=== PATIENT | female | born 1945 | race African-American/Black ===

== ENCOUNTER 2018-03-17 22:46 | Inpatient (IN) | payer MEDICARE ==
--- NOTE | 2018-03-17 23:52 | RAD ---
CHEST ONE VIEW 03/17/18 INDICATION: Cough, shortness of breath and wheezing. FINDINGS: There is air and subsegmental atelectasis involving the left mid lung and right lung base. No consoli dation is evident. Heart size is within normal limits. No acute osseous abnormality is evident. IMPRESSION: Areas of subsegmental volume loss can be seen with bronchiolitis. No air space consolidation is evide nt. POS: [facility]
[2018-03-17] MEDS ORDERED: Dexamethasone 10 MG/ML VIAL ONE (23:54)
[2018-03-17] MEDS ORDERED: Albuterol Sulfate 2.5 mg/3 ml Neb ONE (23:57)
[2018-03-18 00:02] LABS: CK (CPK) 165 U/L (29-168); Lipase Less than 4 U/L (8-78)
[2018-03-18 00:07] LABS: CKMB 3.8 ng/mL (0-6.6); Troponin I Less than 0.010 ng/mL (< 0.028)
[2018-03-18 00:09] LABS: Actual Bicarbonate (HCO3a) 22.1 mEq/L (22-28); Analyzer IN Cardio ER; Base Excess (BEa) -1.7 mEq/L (-2.0 to +3.0); CO2 Tension 34.8 mmHg (35.0-45.0); Calcium, Ionized 1.18 mmol/L (1.12-1.30); Carboxyhemoglobin (COHb) 1.6 gm% (0.0-3.0); Hemoglobin (Hb) 14.7 g/dL (12.0-16.0); O2 Tension (PaO2) 70.8 mmHg (> 70.0); pH, Arterial 7.42 (7.35-7.45)
[2018-03-18 00:11] LABS: Puncture Site L RADIAL
[2018-03-18 00:12] LABS: Band 7 % (5-11); Eosinophils 1 % (0-10); Hemoglobin 14.8 g/dL (12.0-16.0); Lymphocytes 14 % (21-51); MDiff Complete? YES; Mean Corpuscular HGB CONC 31.2 g/dL (32.0-36.0); Mean Corpuscular Hemoglobin 32.1 pg (27.0-31.0); Mean Platelet Volume 7.6 fL (7.4-10.4); Monocytes 1 % (0-10); Neutrophil 77 % (42-75); Platelet Count 244 thou/uL (130-400); RBC Distribution Width 13.6 % (11.5-14.5); White Blood Cell (WBC) Count 7.3 thou/uL (4.8-10.8)
[2018-03-18] MEDS ORDERED: Magnesium 2 GM/50 ML 2 GM in Premix Bag 1 BAG IVPB SCH (00:15)
[2018-03-18 00:16] LABS: Globulin 4.1 g/dL (2.4-3.5); Protein, Total 8.3 g/dL (6.0-8.3)
[2018-03-18 00:17] LABS: ALT (SGPT) 18 U/L (8-55); AST (SGOT) 21 U/L (5-34); Albumin 4.1 g/dL (3.4-4.8); Alkaline Phosphatase 77 U/L (40-150); Anion Gap 16 mmol/L (10-20); BUN (Urea Nitrogen) 10 mg/dL (9.8-20.1); Bilirubin, Total 0.5 mg/dL (0.2-1.2); Calc. Creatinine Clearance 0 mL/min (70-130); Calcium 9.8 mg/dL (7.8-10.44); Carbon Dioxide 21 mmol/L (23-31); Chloride 106 mmol/L (98-107); Estimated GFR-MDRD 70; Glucose 180 mg/dL (80-115); Potassium 3.7 mmol/L (3.5-5.1); Sodium 139 mmol/L (136-145)
[2018-03-18 00:53] LABS: Bilirubin Negative (Negative); Blood, Urine Negative (Negative); Clarity CLEAR (Clear); Glucose, Urine (Dipstick) Negative (Negative); Leukocyte Small (Negative); Nitrite Negative (Negative); Protein, Urine (Dipstick) Negative (Neg-Trace); Specific Gravity, Urine 1.005 (1.002-1.036)
[2018-03-18 00:56] LABS: Bacteria/HPF None Seen HPF (None Seen); Hyaline Casts/LPF 0-3 HYALINE CAST LPF (0-3 Hyaline); RBC/HPF 0-3 HPF (0-3); Squamous Epithelial None Seen HPF (0-3); WBC/HPF 0-3 HPF (0-3)
[2018-03-18] MEDS ORDERED: Enoxaparin Sodium 100 MG/ML SYRINGE ONE (01:22)
[2018-03-18] MEDS ORDERED: Lorazepam 2 MG/ML VIAL ONE (02:34)
[2018-03-18 03:15] LABS: Troponin I Less than 0.010 ng/mL (< 0.028)
[2018-03-18 03:29] LABS: Lactic Acid 3.6 mmol/L (0.5-2.2)
[2018-03-18] MEDS ORDERED: Ondansetron PF 4 MG/2 ML Vial IVP PRN ×2 (03:51→03:58)
[2018-03-18] MEDS ORDERED: Ondansetron ODT 4 MG TAB SL PRN (03:51)
[2018-03-18] MEDS ORDERED: Senokot S 8.6-50 MG TAB PO PRN (03:58)
[2018-03-18] MEDS ORDERED: Acetaminophen 650 MG Suppository PR PRN (03:58)
[2018-03-18 04:41] VITALS: BMI 35.9
--- NOTE | 2018-03-18 05:08 | HP ---
PRIMARY CARE PROVIDER: Modesto Thakkar DO CHIEF COMPLAINT: Shortness of breath. HISTORY OF PRESENT ILLNESS: Ms. Michaels is a pleasant 72-year-old lady who was seen at [facility] on 03/18/2018. She reports that over the last 4 weeks, she has been having wheezing and shortness of breath with exe rtion. She saw her primary care provider 2 weeks ago. When she was seen in the office, she was not wheezing. She saw him again yesterday. At that time, she was wheezing. She was advised to go to [facility] emergency room. She did not wish to go to the emergency room right away. She got steroids and radha athing treatment and clinically improved. She got a prescription for nebulizer. However, her [employer] did not have a nebulizer. She went home and she continued to wheeze and cough. She was convinced by her friends to go to the emergency room. She reports cough that is occasionally productive of greenish sputum. She also reports two episodes of left-sided chest pressure, radiating to left arm, cannot recall any aggravating or relieving factors, is unable to describe the sensation further. REVIEW OF SYSTEMS: All other systems were reviewed and found to be negative. PAST MEDICAL HISTORY: Gastroesophageal reflux disease. PAST SURGICAL HISTORY: Cholecystectomy and a surgery for gastroesophageal reflux disease. SOCIAL HISTORY: The patient quit tobacco 16 years ago. She denies alcohol use or recreational drug use. FAMILY HISTORY: No family history of coronary artery disease. ALLERGIES: IODINE, which she reports as causing swelling all over her body including her airway. CURRENT MEDICATIONS: Reglan 5 mg 2 times a day. PHYSICAL EXAMINATION: GENERAL: Ms. Michaels is awake and alert, not in acute distress. VITAL SIGNS: Blood pressure is 126/66, pulse 97, respiratory rate 26, and oxygen saturation 94% on r oom air. She is afebrile. EYES: No scleral icterus. No conjunctival pallor. ENT: Moist mucosal membranes. No oropharyngeal erythema or exudates. NECK: Supple, nontender. Trachea is midline. RESPIRATORY: Accessory muscles of breathing are active. Chest wall movements are symmetric bilatera lly. She has occasional expiratory wheeze. CARDIOVASCULAR: S1 and S2 are heard, regular. Peripheral pulses palpable. No carotid bruit, no per icardial rub. ABDOMEN: Soft, nontender, bowel sounds are heard. No hepatomegaly, no splenomegaly. NEUROLOGIC: Cranial nerves II through XII intact, deep tendon reflexes are 2+. MUSCULOSKELETAL: Power is 5/5 in all 4 extremities. SKIN: She has left lower extremity stasis dermatitis. LYMPHATIC: No cervical lymphadenopathy. PSYCHIATRIC: Normal mood, normal affect. Patient is oriented to person, place, and time. LABORATORY DATA: Ms. Michaels's labs and investigations were reviewed. She had an electrocardiogram, ich showed normal sinus rhythm, no ST changes to suggest an acute coronary artery syndrome. She has occasional premature supraventricular complexes. She also had a noncontrast CT scan of the chest, ich showed minimal patchy ground glass opacities within the left upper lobe, likely representing area s of pneumonitis, mild bilateral upper and lower lobe bronchial wall thickening, compatible with reac tive airway disease or bronchitis. She also had a chest x-ray, which showed areas of subsegmental vo lume loss that can be seen with bronchiolitis. She has a normal white count, normal hemoglobin, norm al platelet count, elevated D-dimer of 0.97, normal BNP, lactic acid initially normal at 2326 hours y esterday, but increasing to 3.6 at , normal sodium, normal potassium, normal creatinine and unre markable liver profile. CK level is normal. Urinalysis is positive for ketones and small amount of leukocyte esterase. Arterial blood gases show pH of 7.42, pCO2 of 34.8, and pO2 of 70.8. ASSESSMENT AND PLAN: Ms. Michaels is a pleasant 72-year-old lady who was seen at [facility] on 03/18/2018. Her problem list includes: 1. Acute respiratory distress: Ms. Michaels is presenting with acute respiratory distress, most likely secondary to reactive airways disease or bronchitis. She is currently awaiting a VQ scan to rule out pulmonary embolism. She will be admitted to the hospital for further management including oxygen, s teroids, bronchodilators, and antibiotics. 2. Chest pain: She also complains of left-sided chest discomfort. Troponins have been negative so far, EKG does not show any ST elevations. We will recheck troponin level. 3. Gastroesophageal reflux disease: Continue home medications once clarified. Many thanks for allowing me to participate in your patient's care. Please feel free to contact me wi th any questions or concerns. LEVEL OF RISK: Moderate. LEVEL OF COMPLEXITY: Moderate.
[2018-03-18 06:13] LABS: Troponin I 0.012 ng/mL (< 0.028)
[2018-03-18] MEDS: Acetaminophen 325 MG TAB PO PRN ×2 (08:23→20:39)
[2018-03-18] MEDS: Enoxaparin Sodium 100 MG/ML SYRINGE SC SCH ×2 (08:23→20:53)
--- NOTE | 2018-03-18 08:43 | CT ---
PRELIMINARY REPORT/[facility]/EMERGENTY AFTER-HOURS PROCEDURE CT Chest Without Intravenous Contrast EXAM DATE/TIME: 03/18/2018 2:09 AM CLINICAL HISTORY: 72 years old, female; Signs and symptoms; Dyspnea and hyperventilation and shortness of breath; Patie nt HX: F72 presents to the ed C/O cough onset one week ago, worsening today. Family reports cough pro gressed to wheezing and reports associated symptoms of SOB, KRISHNAN and chest pressure "like something is sitting on my chest". PT denies HX of asthma. TECHNIQUE: Axial computed tomography images of the chest without intravenous contrast. Coronal reformatted images were created and reviewed. COMPARISON: No relevant prior studies available. FINDINGS: Lungs: Minimal patchy groundglass opacities within the left upper lobe, likely representing areas of pneumonitis. Bibasilar atelectasis and/or scarring. Mild bilateral upper and lower lobe bronchial wal l thickening, compatible with reactive airway disease or bronchitis. Pleural space: Normal. Heart: Normal. Aorta: No aortic aneurysm. Lymph nodes: Several small lymph nodes in the mediastinum, likely reactive, but nonspecific. Bones/joints: Multilevel thoracic spine degenerative changes. Soft tissues: Normal. Gallbladder and bile ducts: Gallbladder is surgically absent. Stomach and bowel: Surgical changes of prior gastric surgery. Scattered colonic diverticulosis. IMPRESSION: 1. Minimal patchy groundglass opacities within the left upper lobe, likely representing areas of pneu monitis. 2. Mild bilateral upper and lower lobe bronchial wall thickening, compatible with reactive airway dis ease or bronchitis. Thank you for allowing us to participate in the care of your patient. Dictated and Authenticated by: Robin Owen MD 03/18/2018 2:35 AM Central Time ([place] & [place]) FINAL REPORT CT CHEST WITHOUT CONTRAST: Date: 03/18/18 HISTORY: Chest pain. COMPARISON: None. FINDINGS/IMPRESSION: Findings and impression are concordant with the preliminary report by Ramya. POS: [facility]
[2018-03-18] MEDS ORDERED: Prevnar 13-Val Conj/PF 0.5 ML SYRINGE IM ONE (09:00)
[2018-03-18] MEDS ORDERED: Aspirin 325 MG TAB PO SCH (09:00)
[2018-03-18 09:31] LABS: Hemoglobin 13.7 g/dL (12.0-16.0); Platelet Count 229 thou/uL (130-400)
[2018-03-18 10:02] LABS: Calc. Creatinine Clearance 118 mL/min (70-130); Estimated GFR-MDRD Greater than 90
[2018-03-18] MEDS ORDERED: clonazePAM 1 MG TAB PO SCH (11:15)
[2018-03-18] MEDS ORDERED: traMADol HCl 50 MG TAB PO SCH (11:15)
--- NOTE | 2018-03-18 15:19 | NM ---
RADIONUCLIDE VENTILATION PERFUSION LUNG SCAN: Date: 03/18/18 HISTORY: Chest pain. Dyspnea. FINDINGS: Ventilation images show good uptake within each lung. No significant air trapping. Perfusion images s how heterogeneous uptake with a poor perfusion gradient. No segmental or subsegmental perfusion misma tches. IMPRESSION: Exam is negative for clinically significant pulmonary embolus. POS: [facility]
[2018-03-18] MEDS: Guaifenesin DM 100-10/5 ML UDCUP PO PRN ×2 (15:24→20:39)
[2018-03-18] MEDS: traMADol HCl 50 MG TAB PO PRN (17:44)
[2018-03-18] MEDS: clonazePAM 1 MG TAB PO SCH (20:40)
[2018-03-18] MEDS: Metoclopramide HCl 10 MG TAB PO SCH (20:54)
[2018-03-19] MEDS: traMADol HCl 50 MG TAB PO PRN ×3 (00:18→12:04)
[2018-03-19] MEDS: Guaifenesin DM 100-10/5 ML UDCUP PO PRN ×2 (05:06→12:03)
[2018-03-19 05:31] LABS: #Lymphocytes 0.9 thou/uL (1.20-3.40); #Monocytes 0.5 thou/uL (0.11-0.59); #Neutrophils 11.9 thou/uL (1.40-6.50); %Basophils 0.1 % (0.0-1.0); %Eosinophils 0.3 % (0.0-10.0); %Lymphocytes 6.8 % (21.0-51.0); %Monocytes 3.9 % (0.0-10.0); %Neutrophils 88.9 % (42.0-75.0); Hemoglobin 13.4 g/dL (12.0-16.0); Mean Corpuscular HGB CONC 31.9 g/dL (32.0-36.0); Mean Corpuscular Hemoglobin 33.1 pg (27.0-31.0); Mean Platelet Volume 8.1 fL (7.4-10.4); Platelet Count 216 thou/uL (130-400); Red Blood Cell (RBC) Count 4.04 mill/uL (4.20-5.40); White Blood Cell (WBC) Count 13.4 thou/uL (4.8-10.8)
[2018-03-19 06:09] LABS: Anion Gap 12 mmol/L (10-20); BUN (Urea Nitrogen) 15 mg/dL (9.8-20.1); Calc. Creatinine Clearance 119 mL/min (70-130); Calcium 8.9 mg/dL (7.8-10.44); Carbon Dioxide 20 mmol/L (23-31); Chloride 108 mmol/L (98-107); Estimated GFR-MDRD Greater than 90; Glucose 142 mg/dL (80-115); Potassium 4.1 mmol/L (3.5-5.1); Sodium 136 mmol/L (136-145)
[2018-03-19] MEDS: Metoclopramide HCl 10 MG TAB PO SCH (08:16)
[2018-03-19] MEDS: clonazePAM 1 MG TAB PO SCH (08:16)
[2018-03-19] MEDS: Enoxaparin Sodium 100 MG/ML SYRINGE SC SCH (08:16)
[2018-03-19] MEDS: Acetaminophen 325 MG TAB PO PRN (08:21)
[2018-03-19] MEDS ORDERED: Escitalopram Oxalate 10 mg Tablet PO SCH (09:00)
--- NOTE | 2018-03-19 13:43 | DIS ---
DATE OF ADMISSION: 03/18/2018 DATE OF DISCHARGE: 03/19/2018 DISCHARGE DIAGNOSES: 1. Acute bronchitis, improved. 2. Reactive airway disease. 3. Chest pain secondary to #1 and #2, resolved. 4. Gastroesophageal reflux disease. 5. Anxiety disorder. CONSULTATIONS: None. PERTINENT LABORATORY AND X-RAY FINDINGS: Basic metabolic profile within normal limits. Lactic acid level ranged between 2.2-3.6, troponin I negative x3. BNP 39. Lipase less than 4. CBC showed a whi te blood cell count ranging between 7.3-13.4. Blood cultures x2 dated 03/18/2018 showed no growth to date. Influenza A and B antigen dated 03/18/2018 negative. Portable chest x-ray dated 03/17/2018 s howed subsegmental volume loss in the left mid lung and right lung base. CT of the chest dated 03/18 showed ground glass opacities in the left upper lobe. Ventilation perfusion study dated 2017 showed low probability for pulmonary embolus. HOSPITAL COURSE: The patient was initially admitted to the telemetry unit after presenting with incr eased shortness of breath and wheezing. The patient underwent extensive evaluation including multipl e imaging studies showing mild changes in the lung zones consistent with pneumonitis versus bronchiti s. The patient was placed on Levaquin, Solu-Medrol, and given bronchodilator therapy. The patient c linically improved with pulmonary supportive measures and general pulmonary toilet. Telemetry monito ring showed sinus mechanism without evidence of acute arrhythmia or dysrhythmia. Overall, patient di d clinically improve with bronchodilator therapy, antibiotics, and steroids. I have examined the [facility] ient at the time of discharge and discussed followup instructions. The patient overall clinically st able and ready for discharge on 03/19/2018. DISCHARGE MEDICATIONS: 1. Ventolin HFA 2 puffs inhaled q.6 hours p.r.n. 2. Clonazepam 1 mg p.o. b.i.d. 3. Lexapro 10 mg p.o. daily. 4. Reglan 5 mg p.o. b.i.d. 5. Zofran 8 mg p.o. q.6 hours p.r.n. 6. Levaquin 500 mg p.o. daily x5 days. 7. Prednisone 20 mg 1 tab p.o. daily 3 days, followed by half a tab p.o. daily x3 days. FOLLOWUP: The patient will follow up with Dr. Modesto Thakkar within 7 days of discharge. CONDITION ON DISCHARGE: Stable. ACTIVITY: Ad zainab. DIET: Heart healthy. CODE STATUS: FULL. DISPOSITION: Home on 03/19/2018.
[2018-03-19 15:31] VITALS: BP 164/79; TEMP 98.7
== END 2018-03-19 15:45 | disposition home or self-care (01) | DRG 203 ==
LOC: ERS 22:46 → 2NO 03-18 01:16
PROVIDERS: ADMIT Internal Medicine; ATTEND Internal Medicine
DX: J20.9 Acute bronchitis, unspecified (principal); J45.909 Unspecified asthma, uncomplicated; K21.9 Gastro-esophageal reflux disease without esophagitis; F41.9 Anxiety disorder, unspecified
CPT/HCPCS: 36415; 71045; 71250; 78582; 80048; 80053; 81003; 81015; 82550; 82553; 82565; 82805; 83605; 83690; 83880; 84484; 85014; 85018; 85025; 85049; 85379; 87040; 87804; 90471; 90670; 93005; 94640; 94644; 96361; 96365; 96366; 96367; 96372; 96375; A9540; A9558; G0009; J1100; J1650; J1956; J2060; J2920; J7611; J7620

== ENCOUNTER 2018-05-06 16:01 | Emergency (ER) | payer MEDICARE ==
[2018-05-06] MEDS ORDERED: HYDROcodone/Acetaminophen 10/325 mg Tablet ONE (16:30)
--- NOTE | 2018-05-06 16:43 | RAD ---
RIGHT WRIST 3 VIEWS: History A 72-year-old female with a history of wrist pain following an injury from a fall. Comminuted distal radial fracture with multiple fractures extending intraarticularly. Nondisplaced f racture involving the distal ulna including the ulnar styloid process. Diffuse soft tissue swelling. Arthrosis and degenerative changes of the wrist. IMPRESSION: Comminuted distal radial fracture with minimal foreshortening with several extensions into the radioc arpal joint. Nondisplaced fractures of the distal ulna including the base of the ulnar styloid proce ss. POS: [facility]
[2018-05-06] MEDS ORDERED: Ketorolac Tromethamine 60 MG/2 ML VIAL ONE (17:59)
--- NOTE | 2018-05-06 18:22 | CT ---
CT THORACIC SPINE WITHOUT CONTRAST: 05/06/18 HISTORY: Injury. Pain. Upper back pain. Fall. COMPARISON: None. FINDINGS: The visualized lung parenchyma is relatively clear aside from some triangular atelectatic changes in the left lung base. Small bulla in the right lung base. There is bronchiectasis in both lower lobes. The aortic contour is nonaneurysmal. Kidneys are unremarkable. Small left adrenal hypodensity is pres ent, incompletely evaluated on this examination. There is no acute fracture of the thoracic spine. Posterior elements are intact. Transverse processes are intact. There is some ossifications of the left coracoclavicular clavicular ligament similar to the prior [facility] radiograph of 03/17/18. There is an old left T12 transverse process fracture. IMPRESSION: 1. No acute fracture of the thoracic spine. 2. Old left T12 left sided transverse process fracture. 3. Old posterior left 8th rib fracture versus resection. POS: [facility]
== END 2018-05-06 18:27 | disposition home or self-care (01) ==
LOC: ERS 16:01
DX: S52.501A Unspecified fracture of the lower end of right radius, initial encounter for closed fracture (principal); S52.614A Nondisplaced fracture of right ulna styloid process, initial encounter for closed fracture; K21.9 Gastro-esophageal reflux disease without esophagitis; Z87.891 Personal history of nicotine dependence; W17.89XA Other fall from one level to another, initial encounter
CPT/HCPCS: 25600; 72128; 96372; J1885

== ENCOUNTER 2018-09-16 08:49 | Outpatient (CLI) | payer MEDICARE ==
--- NOTE | 2018-09-16 09:58 | BD ---
EXAM: DEXA bone density examination HISTORY: 72-year-old postmenopausal female for screening COMPARISON: None FINDINGS: L1--bone mineral density 0.881 g/sq cm; T score -1.0 L2--bone mineral density 0.968 g/sq cm; T score -0.5 L3--bone mineral density 0.979 g/sq cm; T score -1.0 L4--bone mineral density 0.94 g/sq cm; T score -1.2 Total L1-L4--bone mineral density 0.941 g/sq cm; T score -1.0 Left femoral neck--bone mineral density0.790; T score -0.5 Total proximal left femur--bone mineral density 0.996; T score 0.4 IMPRESSION: Normal bone mineral density. Fracture was not reported as all T score scores are at or ab ove -1.0.
--- NOTE | 2018-09-29 16:21 | MMO ---
Bilateral MAMMO Bilat Screen [facility]. CLINICAL HISTORY: Patient is 72 years old and is seen for screening. The patient has the following family history of breast cancer: sister, IN HER 60'S. The patient has no personal history of cancer. The patient has a history of right Stereotatic Biopsy - benign - IN HER 50'S. VIEWS: The views performed were: bilateral craniocaudal with tomosynthesis; bilateral mediolateral oblique with tomosynthesis; and bilateral exaggerated craniocaudal. MAMMOGRAM FINDINGS: There are scattered fibroglandular densities. Finding 1: There are benign appearing calcifications seen in both breasts. Finding 2: There is a biopsy clip seen in the right breast. There are no suspicious masses, suspicious calcifications, or new areas of architectural distortion. IMPRESSION: THERE IS NO MAMMOGRAPHIC EVIDENCE OF MALIGNANCY. A ROUTINE FOLLOW-UP MAMMOGRAM IN 1 YEAR IS RECOMMENDED. THE RESULTS OF THIS EXAM WERE SENT TO THE PATIENT. ACR BI-RADS Category 2 - Benign finding MAMMOGRAPHY NOTE: 1. A negative mammogram report should not delay a biopsy if a dominant of clinically suspicious mass is present. 2. Approximately 10% to 15% of breast cancers are not detected by mammography. 3. Adenosis and dense breasts may obscure an underlying neoplasm.
== END 2018-09-16 08:50 | disposition home or self-care (01) ==
LOC: BICMAMMO 08:49
PROVIDERS: ATTEND Family Medicine
DX: Z12.31 Encounter for screening mammogram for malignant neoplasm of breast (principal); Z78.0 Asymptomatic menopausal state; Z80.3 Family history of malignant neoplasm of breast
CPT/HCPCS: 77063; 77067; 77080

== ENCOUNTER 2018-12-13 13:15 | Outpatient (CLI) | payer MEDICARE ==
--- NOTE | 2018-12-13 15:53 | MRI ---
MRI RIGHT WRIST: DATE: 12/13/2018. PROVIDED CLINICAL HISTORY: Right wrist pain. FINDINGS: Correlation is made with wrist radiographs dated 05/06/2018. Deformity of the distal radius related to sequelae of previously described distal right radial fractu re. There is loss of radial length and inclination. There is loss of volar tilt. Ununited ulnar st yloid process fracture is demonstrated. Nonspecific heterogeneity involving the ulnar aspects of the TFC. The remainder of the TFCC appears normal. There is partial thickness tearing involving the central portions of the scapholunate ligament. The lunotriquetral ligament appears intact. There is a small radiocarpal joint effusion. The amount of fluid within the mid carpal joint space a ppears physiologic. Carpal alignment appears normal. Regional marrow and muscular signal appear otherwise unremarkable w ith the exception of 1st CMC degenerative change. The dorsal extensor and volar flexor tendons demonstrate an intact MR appearance. The courses of the major neurovascular structures appear unremarkable. IMPRESSION: 1. Sequelae of prior distal radial and ulnar fractures as above. 2. Partial tearing involving the central membranous portions of the scapholunate ligament. 3. Nonspecific heterogeneous appearance to the ulnar aspects of the triangular fibrocartilage, which could indicate a tear. POS: [facility]
== END 2018-12-13 13:16 | disposition home or self-care (01) ==
LOC: BICMRI 13:15
PROVIDERS: ATTEND Orthopaedic Surgery Hand Surgery
DX: S52.501S Unspecified fracture of the lower end of right radius, sequela (principal); S52.611S Displaced fracture of right ulna styloid process, sequela; S63.511A Sprain of carpal joint of right wrist, initial encounter; M25.839 Other specified joint disorders, unspecified wrist

== ENCOUNTER 2019-01-04 06:42 | Outpatient (CLI) | payer MEDICARE ==
[2019-01-04 12:28] LABS: #Basophils 0.1 thou/uL (0.0-0.2); #Eosinphils 0.2 thou/uL (0.0-0.7); #Lymphocytes 1.7 thou/uL (1.20-3.40); #Monocytes 0.4 thou/uL (0.11-0.59); #Neutrophils 1.7 thou/uL (1.40-6.50); %Basophils 1.7 % (0.0-1.0); %Eosinophils 4.4 % (0.0-10.0); %Lymphocytes 42.2 % (21.0-51.0); %Monocytes 10.3 % (0.0-10.0); %Neutrophils 41.4 % (42.0-75.0); Hemoglobin 14.1 g/dL (12.0-16.0); Mean Corpuscular HGB CONC 32.9 g/dL (32.0-36.0); Mean Corpuscular Hemoglobin 33.2 pg (27.0-31.0); Mean Platelet Volume 7.9 fL (7.4-10.4); Platelet Count 210 thou/uL (130-400); RBC Distribution Width 12.7 % (11.5-14.5); Red Blood Cell (RBC) Count 4.25 mill/uL (4.20-5.40)
[2019-01-04 12:55] LABS: Bacteria/HPF None Seen HPF (None Seen); Mucous/LPF 1+ LPF (<2+); RBC/HPF 0-3 HPF (0-3); Squamous Epithelial 0-3 HPF (0-3); WBC/HPF 0-3 HPF (0-3)
[2019-01-04 12:55] LABS: Anion Gap 13 mmol/L (10-20); BUN (Urea Nitrogen) 13 mg/dL (9.8-20.1); Calc. Creatinine Clearance 0 mL/min (70-130); Calcium 9.1 mg/dL (7.8-10.44); Carbon Dioxide 24 mmol/L (23-31); Chloride 106 mmol/L (98-107); Estimated GFR-MDRD Greater than 90; Glucose 97 mg/dL (83-110); Potassium 4.2 mmol/L (3.5-5.1); Sodium 139 mmol/L (136-145)
== END 2019-01-04 06:43 | disposition home or self-care (01) ==
LOC: LABBT 06:42
PROVIDERS: ATTEND Orthopaedic Surgery Hand Surgery
DX: Z01.818 Encounter for other preprocedural examination (principal); G56.01 Carpal tunnel syndrome, right upper limb; S69.91XA Unspecified injury of right wrist, hand and finger(s), initial encounter
CPT/HCPCS: 80048; 81015; 85025; 93005; 93010

== ENCOUNTER 2019-01-06 05:42 | Inpatient (IN) | payer MEDICARE ==
[2019-01-04 10:56] VITALS: BMI 33.9
[2019-01-06] MEDS ORDERED: Fentanyl 100 MCG/2 ML VIAL ONE ×4 (06:08→14:44)
[2019-01-06] MEDS ORDERED: Lidocaine 2% Jelly 5 ML TUBE ONE (06:08)
[2019-01-06] MEDS ORDERED: Bupivacaine PF 0.5% 30 ML VIAL ONE ×2 (06:43→13:31)
[2019-01-06] MEDS ORDERED: EPINEPHrine 1 MG/ML AMP ONE (06:43)
[2019-01-06] MEDS ORDERED: Bacitracin Zinc Ointment 30 gm TUBE ONE (06:43)
[2019-01-06] MEDS ORDERED: Midazolam HCl 2 mg/2 ml Vial ONE ×2 (07:20→07:56)
[2019-01-06] MEDS ORDERED: HYDROmorphone 0.5 MG/0.5 ML SYRINGE ONE (07:56)
[2019-01-06] MEDS ORDERED: traMADol HCl 50 MG TAB PO PRN ×2 (07:57)
[2019-01-06] MEDS ORDERED: HYDROcodone/Acetaminophen 5/325 mg Tablet PO PRN ×2 (07:57→14:46)
[2019-01-06] MEDS ORDERED: Ropivacaine 0.2% 550 ML 550 ML NERVE BLCK SCH (07:57)
[2019-01-06] MEDS ORDERED: Ondansetron PF 4 MG/2 ML Vial IVP PRN (07:57)
[2019-01-06] MEDS ORDERED: Promethazine HCl 25 MG/ML VIAL IM PRN ×2 (07:57→14:17)
[2019-01-06] MEDS ORDERED: Albuterol Sulfate HFA (OR ONLY) ONE (08:13)
[2019-01-06] MEDS ORDERED: ePHEDrine 50 MG/ML VIAL ONE (08:58)
[2019-01-06] MEDS ORDERED: Dexamethasone 20 MG/5 ML VIAL ONE (08:58)
[2019-01-06] MEDS ORDERED: Lidocaine 1% PF 5 ML VIAL ONE (08:58)
[2019-01-06] MEDS ORDERED: Rocuronium Bromide 10 MG/ML (10ML VIAL) ONE (08:58)
[2019-01-06] MEDS ORDERED: Glycopyrrolate 0.2 MG/ML 5 ML SYRINGE ONE (08:58)
[2019-01-06] MEDS ORDERED: Ondansetron PF 4 MG/2 ML Vial ONE (08:58)
[2019-01-06] MEDS ORDERED: PROPOFOL 200 MG/20 ML VIAL ONE (08:58)
[2019-01-06] MEDS ORDERED: PROVENTIL INHALER 6.7 G (200 INHALATIONS) ONE (08:58)
[2019-01-06] MEDS ORDERED: Ropivacaine 0.5% HCl/PF (150 MG/30 ML VIAL) ONE (10:02)
[2019-01-06] MEDS ORDERED: Ropivacaine 0.2% HCl/PF (40 MG/20 ML VIAL) ONE (10:02)
[2019-01-06] MEDS ORDERED: Betamet Acet/Betamet Na Ph 30 MG/5 ML VIAL ONE (10:43)
[2019-01-06] MEDS ORDERED: PACU-Morphine 4MG/ML VIAL SLOW IVP PRN (14:17)
[2019-01-06] MEDS ORDERED: Promethazine HCl 25 MG/ML VIAL SLOW IVP PRN (14:17)
[2019-01-06] MEDS ORDERED: Ondansetron HCl/PF 4 MG/2 ML Vial IVP PRN (14:17)
[2019-01-06] MEDS ORDERED: Promethazine HCl 25 MG/ML VIAL ONE (14:44)
[2019-01-06] MEDS ORDERED: HYDROcodone/Acetaminophen 10/325 mg Tablet PO PRN (14:46)
[2019-01-06] MEDS ORDERED: Morphine 4 MG/ML VIAL SLOW IVP PRN (14:46)
[2019-01-06] MEDS ORDERED: Ondansetron PF 4 MG/2 ML Vial IV PRN (14:46)
[2019-01-06] MEDS ORDERED: Meperidine HCl/PF 25 MG/ML VIAL IM PRN (14:53)
[2019-01-06] MEDS ORDERED: TETANUS AND DIPHTHERIA TOX/PF 0.5 ML DISP.SYRIN IM SCH (15:00)
[2019-01-06] MEDS: Vancomycin HCl 1 GM in Premix Bag 1 BAG IVPB SCH (16:52)
[2019-01-06] MEDS: Fentanyl 100 MCG/2 ML VIAL IV PRN ×3 (18:03→21:01)
[2019-01-06] MEDS: Ketorolac Tromethamine 30 MG/ML VIAL IVP PRN (19:43)
[2019-01-06] MEDS: HYDROcodone/Acetaminophen 5/325 mg Tablet PO PRN ×2 (19:48→23:31)
[2019-01-06] MEDS: Zolpidem Tartrate 5 MG TAB PO PRN (21:01)
[2019-01-06] MEDS: Aspirin 81 mg Enteric Coated Tablet PO SCH (21:01)
--- NOTE | 2019-01-06 23:07 | OP ---
DATE OF PROCEDURE: 01/06/2019 PREOPERATIVE DIAGNOSES: 1. Triangular fibrocartilage tear, peripheral tear with central incomplete extension approximately 12 mm with adequate triangular fibrocartilage complex on both sides of the tear for repair. 2. 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 3. Carpal tunnel syndrome. POSTOPERATIVE DIAGNOSES: 1. Triangular fibrocartilage tear, peripheral tear with central incomplete extension approximately 12 mm with adequate triangular fibrocartilage complex on both sides of the tear for repair. 2. 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 3. Carpal tunnel syndrome. 4. 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 PROCEDURES PERFORMED: 1. Malunion treatment with open reduction and internal fixation, osteotomy, pelvic bone graft harvesting of iliac crest as major bone graft, distal radius malunion. 2. Arthrotomy with triangular fibrocartilage repair, right wrist. 3. Carpal tunnel release. 4. Arthroscopic synovectomy with radial chondroplasty, arthroscopic. INDICATIONS FOR PROCEDURE: The patient with an injury almost 8 months ago, had persistent pain, including numbness and tingling. Radiographically showed the diagnosis above along with clinical and EMG findings of carpal tunnel release, which failed conservative treatment. Thus, operative intervention was indicated. TOURNIQUET TIME: 120 minutes. BLOOD LOSS: 200 mL. FINDINGS: We found 15 degree dorsal tilt preoperative, 5 degrees palm tilt postoperative, 2 mm ulnar positive wrist preoperative to 1 mm ulnar negative postoperative. Chondromalacia was found to be grade 3 on the radius with triangular fibrocartilage tear as described above. DESCRIPTION OF PROCEDURE: After successful general endotracheal anesthesia, the limb was prepped and draped. The patient had time-out done appropriately. We then placed the arm in appropriate traction with industrial arm ramos that gave no undue tension, but allowed us to span the joint. We established 6U, 6R and the 3, 4 portals and made panoramic view of the wrist where we found marked synovitis, chondromalacia in area of previous fracture was done for grade 1 mostly, but some grade 3 and 4 where bone could be seen in an area about the size of the shaver. We also saw some chondromalacia from the lunate and triquetrum, so we did arthroscopic synovectomy, complete. We then also performed arthroscopic chondroplasty on the volar radial corner of the radius. Once this was done, we removed the arthroscope. We then visualized the triangular fibrocartilage tear that was large at least 1 cm through the scope and very peripheral, so we elected to perform an arthrotomy. We exsanguinated the limb, inflated tourniquet to 250 mmHg pressure with the arm still in the arm ramos. We made a zigzag incision in the center of the incision, centered over the 6R portal, carried through skin and subcutaneous tissue and then visualized the extensor tendon of the small finger and then removed the outer compartment radially. We then entered the compartment 4 which was also the outside portion of the wrist joint, carried it down to triangular fibrocartilage. We saw a tear of the triangular fibrocartilage that had a flap that was incomplete, but had a complete area with some red scar material that had tried to heal on the very periphery. We did not see a loose styloid, so we did not explore. We then trimmed this area of injury of fibrotic tissue, and then closed the interval with interrupted [id number] open technique triangular fibrocartilage repair with a 4-0 Prolene. Then, we used a 4-0 Prolene to repair the flap tear, which was completed with x3 sutures. We then closed the joint capsule with interrupted undyed 2-0 Vicryl [id number], closed the retinaculum with interrupted undyed 4-0 Vicryl and then subcutaneous closure was begun with a 4-0 Monocryl running and a 4-0 nylon interrupted mattress. We turned our attention now to the median wrist where, we performed a carpal tunnel release using the standard incision that is in line with the middle of the ring finger mediolaterally and distally went as far as Quiroga cardinal line and proximally 5 mm distal to the volar wrist flexion crease. We carried through skin and subcutaneous tissue until we reached the retinaculum. We visualized the retinaculum, placed a self-retaining Weitlaner and then began to release it from the midportion distally. Once this was accomplished, we used gentle dissection and spreading to make sure neurovascular bundles were protected and then we released the remaining midportion proximally until there was no further compression. Once this was done, we then closed this incision using 4-0 nylon after placing 3 mL of Celestone in this area. Now, we had completed the carpal tunnel release, completed the chondroplasty arthroscopic and synovectomy arthroscopic and the patient's carpal tunnel release had now been closed. We then immediately went to bring the C-arm to the field, confirmed that the heights between the bones and still found it was approximately 1.5-2 mm ulnar positive. Once this was seen, we then had the patient's wrist in palmar flexion, outlined Papo's tubercle and incision beginning 10 cm distal to this and carried it to 4 fingerbreadths proximal to the radial carpal joint. We carried through skin and subcutaneous tissue, identified the extensor pollicis longus and protected this by opening the floor of the 3 at Papo's tubercle, identified Papo's tubercle and flattened it. We then placed two K-wires to brianna our osteotomy site, 0.062s parallel to each other and we placed a 0.062 at the very proximal in the field to help with orientation and then we placed a heavy 2.0 wire parallel to the joint line, but then it was almost 30 degrees off from the parallelism of all the other wires and bone. When this was corrected, we would know we had appropriate angular correction, at least a minimum. We brought a saw into the field, protected the structures around the bone to include brachioradialis with wide spoonbill Hohmann retractor, made the cut, the bone after cutting with oscillating saw using the laminar log data technician until we had seen the height as well as the septum on a tilt. We then retilted approximately 15 degrees until we had reached appropriate position and then put a K-wire here. We measured the opening at the joint at the cut palmar aspect to be 1-2 mm and at the dorsal aspect to be 7, so this would be a piece to be harvested. We turned attention to the ipsilateral right pelvis, made an incision 1 cm distal to the pelvic rim and tunneling as we went through the layers and brought it to the attention of the appropriate timing. Then, we harvested the graft using the incision through the skin, Bovie through the fascia, Epps elevator, stripped the sidewalls, and then we made a sagittal saw, cut and matched the measurements. We trimmed all soft tissue off it, cut it in half, so we had two 8 mm pieces at the dorsal aspect and palmarly. They were 2 mm , so we placed cancellous bone graft here. Corticocancellous was placed to help maintain the gap and once this was done, we removed the Steinmann pin and we still had appropriate height change and some excellent palmar tilt correction of almost 20 degrees. The patient then had any remaining bone graft harvested from the pelvis including cancellous placed at any spaces, we cut the bone, flushed with the other side after we already cut this tubercle and prepared for final fixation. We brought up 2 hockey-stick, one 3-hole faced ulnar and one 2-hole faced radially and each with the 2 of them, we had 6 cortices proximal to the radial osteotomy. Hemostasis was obtained when we deflated the tourniquet. We then review final x-rays and found approximately 3 degree palmar tilt and correction of almost 20 degrees and neutral radial and ulnar height, which was correction of 2-2.5 mm. We then closed the incision after deflating the tourniquet at 2 hour brianna, and first with 0 Vicryl closure the retinaculum interrupted [id number], subcutaneous closure with 3-0 Monocryl, running, and then we closed the epidermis with interrupted 4-0 nylons in a mattress pattern. Before we had begun the closure of the wrist, we obtained excellent hemostasis in the pelvis, sponge count was correct, no sponge was seen in the pelvis and then we closed the fascia after placing a small Hemovac drain and brought out through a separate stab wound at skin level with 10 holes inside over the drain with a running #1 Vicryl. Then, we closed the fascia. The subcutaneous closure was accomplished with a running 3-0 Monocryl and the skin with nico. We had given 10 mL of 0.5% Marcaine around the incision before we made the incision. Now, we gave 20 around the incision afterwards. Bulky dressing was applied here, bulky dressing was applied on the hand along with a sugar-tong splint in neutral position and the patient left the operating room with drain in place and no evidence of anesthetic or operative complication. Job ID: [id number]
[2019-01-07] MEDS: HYDROcodone/Acetaminophen 5/325 mg Tablet PO PRN ×2 (03:44→08:28)
[2019-01-07] MEDS: Ketorolac Tromethamine 30 MG/ML VIAL IVP PRN ×3 (03:45→21:33)
[2019-01-07] MEDS: Fentanyl 100 MCG/2 ML VIAL IV PRN ×4 (03:50→10:14)
[2019-01-07] MEDS: Vancomycin HCl 1 GM in Premix Bag 1 BAG IVPB SCH ×2 (04:00→16:08)
[2019-01-07 05:03] LABS: #Lymphocytes 0.8 thou/uL (1.20-3.40); #Monocytes 0.6 thou/uL (0.11-0.59); #Neutrophils 6.7 thou/uL (1.40-6.50); %Basophils 0.2 % (0.0-1.0); %Eosinophils 0.1 % (0.0-10.0); %Lymphocytes 9.6 % (21.0-51.0); %Monocytes 7.3 % (0.0-10.0); %Neutrophils 82.7 % (42.0-75.0); Hemoglobin 12.2 g/dL (12.0-16.0); Mean Corpuscular HGB CONC 32.9 g/dL (32.0-36.0); Mean Corpuscular Hemoglobin 33.9 pg (27.0-31.0); Mean Platelet Volume 7.3 fL (7.4-10.4); Platelet Count 191 thou/uL (130-400); RBC Distribution Width 12.6 % (11.5-14.5); Red Blood Cell (RBC) Count 3.59 mill/uL (4.20-5.40); White Blood Cell (WBC) Count 8.1 thou/uL (4.8-10.8)
[2019-01-07 05:31] LABS: ALT (SGPT) 139 U/L (8-55); AST (SGOT) 191 U/L (5-34); Albumin 3.2 g/dL (3.4-4.8); Alkaline Phosphatase 106 U/L (40-150); Anion Gap 11 mmol/L (10-20); BUN (Urea Nitrogen) 12 mg/dL (9.8-20.1); Bilirubin, Total 0.4 mg/dL (0.2-1.2); Calc. Creatinine Clearance 109 mL/min (70-130); Calcium 8.3 mg/dL (7.8-10.44); Carbon Dioxide 23 mmol/L (23-31); Chloride 109 mmol/L (98-107); Estimated GFR-MDRD Greater than 90; Globulin 2.9 g/dL (2.4-3.5); Glucose 172 mg/dL (83-110); Potassium 4.6 mmol/L (3.5-5.1); Protein, Total 6.1 g/dL (6.0-8.3); Sodium 138 mmol/L (136-145)
[2019-01-07] MEDS: Aspirin 81 mg Enteric Coated Tablet PO SCH ×2 (07:43→21:33)
[2019-01-07] MEDS ORDERED: Prevnar 13-Val Conj/PF 0.5 ML SYRINGE IM ONE (09:00)
[2019-01-07] MEDS ORDERED: Bupivacaine/Epinephrine 0.25% 30 ML VIAL ONE (10:14)
[2019-01-07] MEDS ORDERED: Ondansetron PF 4 MG/2 ML Vial IVP PRN (10:37)
[2019-01-07] MEDS ORDERED: Ketorolac Tromethamine 30 MG/ML VIAL IVP PRN (10:37)
[2019-01-07] MEDS ORDERED: Zolpidem Tartrate 5 MG TAB PO PRN (10:37)
[2019-01-07] MEDS ORDERED: Naloxone HCl 0.4 mg/ml Vial IV PRN (10:37)
[2019-01-07] MEDS ORDERED: Promethazine HCl 25 MG/ML VIAL IM PRN (10:37)
[2019-01-07] MEDS ORDERED: diphenhydrAMINE 50 MG/ML VIAL IM/IV PRN (10:37)
[2019-01-07] MEDS: fentaNYL Citrate/PF 2,000 MCG in Sodium Chloride 0.9% 60 ML IV PRN (11:19)
[2019-01-07 15:50] LABS: Vancomycin, Trough 8.8 ug/mL
[2019-01-07] MEDS: Zolpidem Tartrate 5 MG TAB PO PRN (21:33)
[2019-01-08] MEDS: Vancomycin HCl 1 GM in Premix Bag 1 BAG IVPB SCH (04:00)
[2019-01-08] MEDS: fentaNYL Citrate/PF 2,000 MCG in Sodium Chloride 0.9% 60 ML IV PRN (06:16)
[2019-01-08] MEDS: Aspirin 81 mg Enteric Coated Tablet PO SCH ×2 (08:29→20:24)
[2019-01-08] MEDS: Ketorolac Tromethamine 30 MG/ML VIAL IVP PRN ×2 (11:22→21:14)
[2019-01-08] MEDS: diphenhydrAMINE 25 MG CAP PO PRN (21:24)
[2019-01-09] MEDS: fentaNYL Citrate/PF 2,000 MCG in Sodium Chloride 0.9% 60 ML IV PRN (01:18)
[2019-01-09] MEDS: Aspirin 81 mg Enteric Coated Tablet PO SCH (08:02)
[2019-01-09] MEDS: diphenhydrAMINE 25 MG CAP PO PRN (08:10)
[2019-01-09 08:35] VITALS: BP 146/83; TEMP 98.5
--- NOTE | 2019-01-10 16:30 | RAD ---
RIGHT WRIST THREE VIEWS: 01/10/19 HISTORY: ORIF right wrist. FINDINGS/IMPRESSION: Five spot fluoroscopic intraoperative images of the right wrist demonstrate internal fixation of the distal radial fractures with plates and screws. Fracture of the ulnar styloid is present. POS: ELVIS
== END 2019-01-09 10:28 | disposition home or self-care (01) | DRG 506 ==
LOC: SDC 05:42 → SURG B 15:39
PROVIDERS: ADMIT Orthopaedic Surgery Hand Surgery; ATTEND Orthopaedic Surgery Hand Surgery
PROC: 0RQN0ZZ Repair Right Wrist Joint, Open Approach (ICD-10-PCS; principal; 2019-01-06)
PROC: 01N50ZZ Release Median Nerve, Open Approach (ICD-10-PCS; 2019-01-06)
PROC: 0PSH04Z Reposition Right Radius with Internal Fixation Device, Open Approach (ICD-10-PCS; 2019-01-06)
PROC: 0QB20ZZ Excision of Right Pelvic Bone, Open Approach (ICD-10-PCS; 2019-01-06)
PROC: 0PUJ07Z Supplement Left Radius with Autologous Tissue Substitute, Open Approach (ICD-10-PCS; 2019-01-06)
DX: S52.611A Displaced fracture of right ulna styloid process, initial encounter for closed fracture (principal); G56.01 Carpal tunnel syndrome, right upper limb; S63.8X1A Sprain of other part of right wrist and hand, initial encounter; X58.XXXA Exposure to other specified factors, initial encounter; I10 Essential (primary) hypertension; I73.9 Peripheral vascular disease, unspecified; G43.909 Migraine, unspecified, not intractable, without status migrainosus; M19.90 Unspecified osteoarthritis, unspecified site; S63.511A Sprain of carpal joint of right wrist, initial encounter; Z87.891 Personal history of nicotine dependence; Z79.82 Long term (current) use of aspirin; Z79.899 Other long term (current) drug therapy
CPT/HCPCS: 36415; 76000; 80048; 80053; 80202; 81015; 85025; 93005; 93010; A4306; C1713; J0171; J0690; J0702; J1100; J1170; J1885; J2001; J2250; J2405; J2550; J2704; J2795; J3010; J3370; J3490; Q0163; S0020

== ENCOUNTER 2019-04-17 09:58 | Outpatient (CLI) | payer MEDICARE ==
--- NOTE | 2019-04-17 10:32 | RAD ---
XR Knee Rt 2 View History: Knee pain Comparison: None. Findings: No acute fracture. There is a subtle medullary cavity lucency in the distal femoral metaphy sis and proximal tibial metadiaphysis which may be sequelae of bone infarct. Mild pretibial and prepatellar soft tissue swelling. No significant joint effusion. Impression: 1. No acute fracture or malalignment. 2. Subtle well-defined lucencies within the distal femoral metaphysis and proximal tibial metadiaphys is may be sequelae of prior infarction.
--- NOTE | 2019-04-17 10:40 | RAD ---
XR Lumbar Spine 2 Or 3 View History: Low back pain Comparison: None. Findings: Moderate facet arthrosis throughout the lumbar spine, greatest from L2-3-S1. Grade 1 L4 ove r L5 anterolisthesis due to degenerative facet narrowing. No acute fracture. Surgical clips along the anterior abdomen. No dilated loops of large or small bowel. No acute fracture. Impression: Moderate facet degenerative disease, greatest in the lower lumbar spine, with subsequent grade 1 L4 over L5 retrolisthesis.
== END 2019-04-17 09:59 | disposition home or self-care (01) ==
LOC: BICRAD 09:58
PROVIDERS: ATTEND Family Medicine
DX: M25.561 Pain in right knee (principal); M54.5 Low back pain; M47.816 Spondylosis without myelopathy or radiculopathy, lumbar region; M43.16 Spondylolisthesis, lumbar region; M89.9 Disorder of bone, unspecified
CPT/HCPCS: 36415; 72100; 80053

== ENCOUNTER 2019-10-11 08:02 | Outpatient (CLI) | payer MEDICARE ==
--- NOTE | 2019-10-11 08:34 | MMO ---
Bilateral MAMMO Bilat Screen [facility]. CLINICAL HISTORY: Patient is 73 years old and is seen for screening. The patient has the following family history of breast cancer: sister, IN HER 60'S. The patient has no personal history of cancer. The patient has a history of right Stereotatic Biopsy - benign - IN HER 50'S. VIEWS: The views performed were: bilateral craniocaudal with tomosynthesis and bilateral mediolateral oblique with tomosynthesis. FILMS COMPARED: The present examination has been compared to prior imaging studies performed at [facility] on 09/16/2018, and at [facility] on 09/14/2012, 07/13/2014 and 09/14/2016. This study has been interpreted with the assistance of computer-aided detection. MAMMOGRAM FINDINGS: There are scattered fibroglandular densities. Finding 1: There are benign appearing calcifications seen in both breasts. Finding 2: There is a biopsy clip seen in the right breast. There are no suspicious masses, suspicious calcifications, or new areas of architectural distortion. IMPRESSION: THERE IS NO MAMMOGRAPHIC EVIDENCE OF MALIGNANCY. A ROUTINE FOLLOW-UP MAMMOGRAM IN 1 YEAR IS RECOMMENDED. THE RESULTS OF THIS EXAM WERE SENT TO THE PATIENT. ACR BI-RADS Category 2 - Benign finding MAMMOGRAPHY NOTE: 1. A negative mammogram report should not delay a biopsy if a dominant of clinically suspicious mass is present. 2. Approximately 10% to 15% of breast cancers are not detected by mammography. 3. Adenosis and dense breasts may obscure an underlying neoplasm. Reported by: PAUL GREGORIO MD Electonically Signed: [id number]
== END 2019-10-11 08:03 | disposition home or self-care (01) ==
LOC: BICMAMMO 08:02
PROVIDERS: ATTEND Family Medicine
DX: Z12.31 Encounter for screening mammogram for malignant neoplasm of breast (principal); Z80.3 Family history of malignant neoplasm of breast; Z91.89 Other specified personal risk factors, not elsewhere classified
CPT/HCPCS: 77063; 77067

== ENCOUNTER 2020-03-19 09:41 | Outpatient (CLI) | payer MEDICARE | END 2020-03-19 09:42 | disposition home or self-care (01) | LOC: CTENTCT 09:41 | PROVIDERS: ATTEND Otolaryngology Plastic Surgery within the Head & Neck | DX: J32.9 Chronic sinusitis, unspecified (principal) | CPT/HCPCS: 70486 ==

== ENCOUNTER 2020-04-12 06:51 | Outpatient (CLI) | payer MEDICARE ==
[2020-04-12 14:43] LABS: Hemoglobin 13.5 g/dL (12.0-16.0)
[2020-04-12 14:52] LABS: Anion Gap 14 mmol/L (10-20); BUN (Urea Nitrogen) 20 mg/dL (9.8-20.1); Calc. Creatinine Clearance 0 mL/min (70-130); Calcium 9.2 mg/dL (7.8-10.44); Carbon Dioxide 27 mmol/L (23-31); Chloride 101 mmol/L (98-107); Glucose 87 mg/dL (83-110); Potassium 4.1 mmol/L (3.5-5.1); Sodium 138 mmol/L (136-145)
--- NOTE | 2020-04-12 16:19 | EKG ---
Test Reason : Blood Pressure : / mmHG Vent. Rate : 067 BPM Atrial Rate : 067 BPM P-R Int : 136 ms QRS Dur : 138 ms QT Int : 412 ms P-R-T Axes : 059 000 -05 degrees QTc Int : 435 ms Sinus rhythm with Premature supraventricular complexes Right bundle branch block Abnormal ECG Confirmed by DR. Barrett BURCH ([id number]) on 04/12/2020 4:18:53 PM Referred By: JESSI Confirmed By:DR. Barrett BURCH
[2020-04-13 03:27] LABS: SARS-CoV-2 MS2 Positive; SARS-CoV-2 N Gene Negative; SARS-CoV-2 S Gene Negative; SARS-CoV-2 by NAA Not Detected (NotDetected); SARS-CoV-2 orf1ab Negative
== END 2020-04-12 06:52 | disposition home or self-care (01) ==
LOC: LABBT 06:51
PROVIDERS: ATTEND Otolaryngology Plastic Surgery within the Head & Neck
DX: Z01.818 Encounter for other preprocedural examination (principal); Z20.828 Contact with and (suspected) exposure to other viral communicable diseases; J32.9 Chronic sinusitis, unspecified; J30.9 Allergic rhinitis, unspecified; J34.3 Hypertrophy of nasal turbinates; R49.0 Dysphonia; J33.9 Nasal polyp, unspecified; R51.9 Headache, unspecified; R68.89 Other general symptoms and signs; R43.2 Parageusia; R43.8 Other disturbances of smell and taste; J34.89 Other specified disorders of nose and nasal sinuses
CPT/HCPCS: 80048; 85014; 85018; 93005; U0003; 87635; 93010

== ENCOUNTER 2020-04-17 09:03 | Day surgery (SDC) | payer MEDICARE ==
[2020-04-16 14:15] VITALS: BMI 33.9
[~2020-04-17 09:03] MED LIST: Dexamethasone 20 MG/5 ML VIAL ONE; Glycopyrrolate 0.2 MG/ML 5 ML SYRINGE ONE; Lidocaine 1% PF 5 ML VIAL ONE; Ondansetron PF 4 MG/2 ML Vial ONE; PROPOFOL 200 MG/20 ML VIAL ONE; Rocuronium Bromide 10 MG/ML (10ML VIAL) ONE
[2020-04-17] MEDS ORDERED: AFRIN NASAL MIST 15 ML BOT ONE ×2 (09:36→10:19)
[2020-04-17] MEDS ORDERED: Lidocaine 1% w/Epinephrine 1:100K 20 ML VIAL ONE (10:19)
[2020-04-17] MEDS ORDERED: Midazolam HCl 2 mg/2 ml Vial ONE (10:25)
[2020-04-17] MEDS ORDERED: Fentanyl 100 MCG/2 ML VIAL ONE ×2 (10:25→11:54)
[2020-04-17] MEDS ORDERED: Promethazine HCl 25 MG/ML VIAL ONE (11:54)
[2020-04-17] MEDS ORDERED: HYDROcodone/Acetaminophen 5/325 mg Tablet ONE (13:32)
--- NOTE | 2020-04-18 13:18 | OP ---
DATE OF PROCEDURE: 04/17/2020 PREOPERATIVE DIAGNOSES: 1. Chronic rhinosinusitis. 2. Bilateral inferior turbinate hypertrophy. 3. Bilateral severe nasal polyposis. 4. Nasal obstruction. POSTOPERATIVE DIAGNOSES: 1. Chronic rhinosinusitis. 2. Bilateral inferior turbinate hypertrophy. 3. Bilateral severe nasal polyposis. 4. Nasal obstruction. PROCEDURES PERFORMED: 1. Bilateral endoscopic sinus surgery, total ethmoidectomies with sphenoidotomies including removal of tissue. 2. Bilateral endoscopic sinus surgery, maxillary antrostomies with removal of tissue. 3. Bilateral endoscopic sinus surgery, frontal sinusotomy with removal of tissue. 4. Bilateral inferior turbinate submucosal resection. 5. [employer] image-guided stereotactic navigational surgery. ESTIMATED BLOOD LOSS: 60 mL. COMPLICATIONS: None. ANESTHESIA: GETA. DESCRIPTION OF PROCEDURE: The patient was taken to the operating room, placed supine on the table. General endotracheal anesthesia was obtained by the anesthesia staff. Tube was secured in the left lower lip. The patient was prepped and draped for standard nasal procedures. Following this, Afrin pledgets were placed in the nasal cavity and the [employer] image-guided system was set up, calibrated, and was noted to be within 1 mm of accuracy. Following this, Afrin pledgets were removed. 1% lidocaine with 1:100,000 epinephrine was injected into the inferior turbinates, middle turbinates, and lateral nasal wall. Multiple nasal polyps were seen obstructing majority of the nasal cavity and these were injected with 1% lidocaine with 1:100,000 epinephrine as well. Following this, nasal polyps removed using 0-degree microdebrider and the Blakesley forceps in order to identify lateral nasal wall using all instruments under stereotactic guidance. The uncinate process was identified and was anteriorly fractured using a ball-ended probe and was removed using 0-degree microdebrider and up-biting Blakesley forceps bilaterally. The natural maxillary sinus ostia was then identified with the curved suction device under stereotactic guidance and the natural maxillary sinus ostia was then widened using a 40-degree microdebrider blade and straight Blakesley forceps. Nasal polyps were removed from within the maxillary sinuses bilaterally. Following this, ethmoidal bulla was identified and was punctured on its medial and inferior aspect with the 0-degree microdebrider and was removed using the microdebrider and up-biting Blakesley forceps. Nasal polyps were encountered all throughout the anterior ethmoidal cells as well. The grand lamella was then identified and was punctured into the posterior ethmoidal cells using the microdebrider. The microdebrider under stereotactic guidance was then used to open the ethmoidal cells from posteriorly to anteriorly. Nasal polyps were removed throughout the ethmoidal cells. Following this, the sphenoid sinus was identified using a [employer] image-guided system and a sphenoidotomy was created on the anterior wall of the sphenoid sinus with the microdebrider bilaterally. The sphenoid sinus was widened in a medial and inferior direction using the microdebrider. Purulence and nasal polyps were removed from the sphenoid sinuses bilaterally. Following this, a 45-degree endoscope along with the 40-degree microdebrider blade under stereotactic guidance was used to identify and open the frontal sinus ostia bilaterally. Nasal polyps and purulence were removed from the frontal sinuses bilaterally. Following this, the inferior turbinates were punctured on the anterior inferior aspect and submucosal resection was performed on the inferior turbinates bilaterally. Following this, inferior turbinates were laterally fractured using a [place] elevator. Following this, the nasal cavity was irrigated. Nasal pore packing was placed within the middle meatus. The patient tolerated the procedure well. Job ID: [id number]
== END 2020-04-17 14:20 | disposition home or self-care (01) ==
LOC: SDC 09:03
PROVIDERS: ATTEND Otolaryngology Plastic Surgery within the Head & Neck
PROC: 8E09XBZ Computer Assisted Procedure of Head and Neck Region (ICD-10-PCS; principal; 2020-04-17)
PROC: 09TL4ZZ Resection of Nasal Turbinate, Percutaneous Endoscopic Approach (ICD-10-PCS; 2020-04-17)
PROC: 09BT8ZZ Excision of Left Frontal Sinus, Via Natural or Artificial Opening Endoscopic (ICD-10-PCS; 2020-04-17)
PROC: 09BW8ZZ Excision of Right Sphenoid Sinus, Via Natural or Artificial Opening Endoscopic (ICD-10-PCS; 2020-04-17)
PROC: 09BX8ZZ Excision of Left Sphenoid Sinus, Via Natural or Artificial Opening Endoscopic (ICD-10-PCS; 2020-04-17)
PROC: 09BQ8ZZ Excision of Right Maxillary Sinus, Via Natural or Artificial Opening Endoscopic (ICD-10-PCS; 2020-04-17)
PROC: 09BR8ZZ Excision of Left Maxillary Sinus, Via Natural or Artificial Opening Endoscopic (ICD-10-PCS; 2020-04-17)
PROC: 09BS8ZZ Excision of Right Frontal Sinus, Via Natural or Artificial Opening Endoscopic (ICD-10-PCS; 2020-04-17)
PROC: 09TV8ZZ Resection of Left Ethmoid Sinus, Via Natural or Artificial Opening Endoscopic (ICD-10-PCS; 2020-04-17)
PROC: 09TU8ZZ Resection of Right Ethmoid Sinus, Via Natural or Artificial Opening Endoscopic (ICD-10-PCS; 2020-04-17)
DX: J32.9 Chronic sinusitis, unspecified (principal); J34.3 Hypertrophy of nasal turbinates; J33.8 Other polyp of sinus; J34.89 Other specified disorders of nose and nasal sinuses; J30.9 Allergic rhinitis, unspecified; I73.9 Peripheral vascular disease, unspecified; K21.9 Gastro-esophageal reflux disease without esophagitis; F43.20 Adjustment disorder, unspecified; Z87.891 Personal history of nicotine dependence; Z79.82 Long term (current) use of aspirin; Z79.899 Other long term (current) drug therapy; Z91.041 Radiographic dye allergy status
CPT/HCPCS: J0690; J1100; J2250; J2405; J2550; J2704; J3010

== ENCOUNTER 2020-08-06 08:30 | Outpatient (CLI) | payer MEDICARE | END 2020-08-06 08:31 | disposition home or self-care (01) | LOC: RAD 08:30 | PROVIDERS: ATTEND Internal Medicine | DX: K21.00 Gastro-esophageal reflux disease with esophagitis, without bleeding (principal); K59.00 Constipation, unspecified; R19.2 Visible peristalsis; Z98.890 Other specified postprocedural states | CPT/HCPCS: 74246 ==

== ENCOUNTER 2020-08-20 11:59 | Outpatient (CLI) | payer MEDICARE | END 2020-08-20 12:00 | disposition home or self-care (01) | LOC: BICMRI 11:59 | PROVIDERS: ATTEND Family Medicine | DX: M48.062 Spinal stenosis, lumbar region with neurogenic claudication (principal); M47.26 Other spondylosis with radiculopathy, lumbar region; M51.16 Intervertebral disc disorders with radiculopathy, lumbar region; G89.4 Chronic pain syndrome; M47.817 Spondylosis without myelopathy or radiculopathy, lumbosacral region | CPT/HCPCS: 72120; 72148 ==

== ENCOUNTER 2021-03-18 11:45 | Outpatient (CLI) | payer MEDICARE | END 2021-03-18 11:46 | disposition home or self-care (01) | LOC: BICMAMMO 11:45 | PROVIDERS: ATTEND Family Medicine | DX: Z12.31 Encounter for screening mammogram for malignant neoplasm of breast (principal); Z80.3 Family history of malignant neoplasm of breast; Z98.890 Other specified postprocedural states | CPT/HCPCS: 77063; 77067 ==

== ENCOUNTER 2021-06-05 09:39 | Outpatient (CLI) | payer MEDICARE | END 2021-06-05 09:40 | disposition home or self-care (01) | LOC: BICMAMMO 09:39 | PROVIDERS: ATTEND Family Medicine | DX: Z13.820 Encounter for screening for osteoporosis (principal); Z78.0 Asymptomatic menopausal state; M85.88 Other specified disorders of bone density and structure, other site | CPT/HCPCS: 77080 ==